=== PATIENT | female | born 1970 | race Caucasian/White ===

== ENCOUNTER 2023-04-15 11:51 | Observation (INO) ==
--- NOTE | 2023-04-15 12:12 | DR.AMS ---
HPI Time Seen Time Seen by Provider: 04/15/23 12:12 Complaint Cheif Complaint Doctors Comments: 52-year-old female brought in by her son for evaluation. Patient with a history of chronic back pain, awaiting appointment for back surgery. She is on chronic pain medications. Son states she found her talking out of her head this a.m.. Patient was confused, not making sense. Brought in for evaluation, she is currently doing better. Complaining of severe low back pain. No recent trauma, both legs weak. Has pain with urination, bearing down, but no urinary or stool incontinence. Has been chilled recently, but no known fever. No URI symptoms. COVID-19 Coronavirus risk:travel/contact w/high risk person: No Has patient experienced Coronavirus symptoms: No Reviewed Nurses Notes Reviewed: Yes Source History Provided: Patient and Family Member PMH PMH Past Medical History: Hypertension Past Medical History Comment: chronic back pain Past Surgical History: Yes Family History Family Medical History: Cancer and Hypertension Social History Alcohol Use: None Do you use any recreational Drugs:: No Travel Risk Coronavirus risk:travel/contact w/high risk person: No Has patient experienced Coronavirus symptoms: No ROS Review of Systems Constitutional: Weakness Eyes: No Symptoms Reported ENTM: No Symptoms Reported Respiratoy: No Symptoms Reported Cardiovascular: No Symptoms Reported Gastrointestinal/Abdominal: No Symptoms Reported Genitourinary: No Symptoms Reported Neurological: Tingling and Weakness Musculoskeletal: No Symptoms Reported Integumentary: No Symptoms Reported All Other Systems: Reviewed and Negative PE Vitals Vital Signs: Temp Pulse Resp BP Pulse Ox O2 Del Method 04/15/23 16:45 115 H 25 H 04/15/23 16:30 116 H 28 H 04/15/23 16:30 148/72 04/15/23 16:15 112 H 25 H 04/15/23 16:00 109 H 26 H 99 04/15/23 16:00 143/70 04/15/23 15:55 110 H 22 98 04/15/23 15:55 141/64 04/15/23 15:45 109 H 29 H 04/15/23 15:30 109 H 26 H 04/15/23 15:15 109 H 19 04/15/23 15:00 108 H 19 04/15/23 14:45 107 H 23 04/15/23 14:30 105 H 24 04/15/23 14:15 104 H 23 98 04/15/23 14:00 153/67 04/15/23 14:00 109 H 28 H 04/15/23 13:45 104 H 31 H 04/15/23 13:30 100 H 19 04/15/23 13:30 134/64 04/15/23 13:29 100 H 19 04/15/23 13:00 105 H 19 04/15/23 13:00 149/85 04/15/23 12:45 99 H 04/15/23 12:31 97 H 95 04/15/23 12:31 120/59 04/15/23 12:30 97 H 92 L 04/15/23 12:15 96 H 93 L 04/15/23 12:06 100 H 97 04/15/23 12:05 150/68 04/15/23 11:51 99.6 F 102 H 18 150/68 97 Room Air General General Appearance: Alert and In No Apparent Distress Head Head Exam: Normal Inspection, Atraumatic and Normocephalic Eyes Eye exam: PERRL and EOMI ENT ENT Exam: Normal Oropharynx and Mucous Membranes Moist Neck Neck Exam: Normal Inspection and Full ROM Respiratory Respiratory Exam: Normal Lung Sounds Bilat; negative Accessory Muscle Use or Respiratory Distress Cardiovascular Cardiovascular Exam: Regular Rate, Normal Rhythm and Normal Heart Sounds Abdominal Exam Abdominal Exam: Normal Bowel Sounds and Soft; negative Tenderness Extremities Extremities Exam: Normal Inspection; negative Tenderness or Edema Neurological Neurological Exam: Alert, Oriented X3, CN II-XII Intact and Other (+ bilateral lower ext weakness. Cant keep either off bed, + FROM ankles/feet/toes, + good pulses.) Skin Skin Exam: Warm and Dry COURSE Treatment Treatment: 52-year-old female brought in via son for altered mental status. He states she was talking out of her head this a.m. Patient on chronic medications for pain, anxiety. Patient due for back surgery in the future, trying to schedule appoint with specialist. No report of recent illness. Neurologically intact. Weakness of bilateral lower extremities try to get off the bed. Has full range of motion and strength of her ankles/toes. Patient given IV fluids. 1535 -imaging studies unremarkable for acute abnormalities. Patient had an acceptable chest x-ray, CT of the brain, CT lumbar spine. Does have chronic degenerative disc disease of the lumbar spine. CBC acceptable. CMP PE shows elevated kidney numbers, were normal last year. BUN now 61, creatinine 2.44 with an EGFR of 22, consistent with depletion. Also with a bump of her AST, 287 and ALT 163. Patient was given IV fluids, given additional IV fluids for dehydration. Pt 's responds appropiately to some questions, then starts talking gibberish. Will admit for further hydration, consider MRI of the brain to look out for subtle lesions. 1718 - Dr De Leon accepts the admission. [facility] Labs Reviewed Laboratory Results Reviewed?: Yes 04/15/23 12:45 04/15/23 12:45 Laboratory: WBC 12.8 X10^3/uL (3.6-10.0) H 04/15/23 12:45 RBC 4.09 X10^6/uL (3.5-5.4) 04/15/23 12:45 Hgb 13.1 g/dL (12.0-16.0) 04/15/23 12:45 Hct 38.7 % (36.0-47.0) 04/15/23 12:45 MCV 94.7 fL (80.0-100.0) 04/15/23 12:45 MCH 32.0 pg (27.0-34.0) 04/15/23 12:45 MCHC 33.8 g/dL (33.0-35.0) 04/15/23 12:45 RDW 12.5 % (11.6-16.5) 04/15/23 12:45 Plt Count 376 X10^3/uL (150.0-450.0) 04/15/23 12:45 MPV 7.2 fL (7.4-11.0) L 04/15/23 12:45 Neut % (Auto) 85.4 % (42.0-75.0) H 04/15/23 12:45 Lymph % (Auto) 8.2 % (21.0-51.0) L 04/15/23 12:45 Mckean % (Auto) 6.0 % (0.0-13.0) 04/15/23 12:45 Eos % (Auto) 0.0 % (0.9-2.9) L 04/15/23 12:45 Baso % (Auto) 0.4 % (0.2-1.0) 04/15/23 12:45 Neut # (Auto) 10.9 x10^3/uL (2.2-4.8) H 04/15/23 12:45 Lymph # (Auto) 1.0 X10^3/uL (1.3-2.9) L 04/15/23 12:45 Mckean # (Auto) 0.8 x10^3/uL (0.3-0.8) 04/15/23 12:45 Eos # (Auto) 0.0 x10^3/uL (0.0-0.2) 04/15/23 12:45 Baso # (Auto) 0.1 X10^3/uL (0.0-0.1) 04/15/23 12:45 Absolute Nucleated RBC 0.0 /100WBC 04/15/23 12:45 Sodium 136 mmol/L (136-145) 04/15/23 12:45 Corrected Sodium TNP 04/15/23 12:45 Potassium 4.1 mmol/L (3.5-5.1) 04/15/23 12:45 Chloride 100 mmol/L (98-107) 04/15/23 12:45 Carbon Dioxide 25.7 mmol/L (21-32) 04/15/23 12:45 BUN 61 mg/dL (7-18) H 04/15/23 12:45 Creatinine 2.44 mg/dL (0.55-1.02) H 04/15/23 12:45 Est GFR (MDRD) Af Amer 27 (>60) L 04/15/23 12:45 Est GFR (MDRD) Non-Af 22 (>60) L 04/15/23 12:45 Glucose 90 mg/dL (65-99) 04/15/23 12:45 Calcium 9.4 mg/dL (8.5-10.1) 04/15/23 12:45 Corrected Calcium TNP 04/15/23 12:45 Total Bilirubin 0.60 mg/dL (0.2-1.0) 04/15/23 12:45 AST 287 Units/L (15-37) H 04/15/23 12:45 ALT 163 Units/L (12-78) H 04/15/23 12:45 Alkaline Phosphatase 84 Units/L (46-116) 04/15/23 12:45 Total Protein 8.2 g/dL (6.4-8.2) 04/15/23 12:45 Albumin 3.8 g/dL (3.4-5.0) 04/15/23 12:45 Globulin 4.4 g/dL (2.5-4.5) 04/15/23 12:45 Albumin/Globulin Ratio 0.9 Ratio (1.1-2.1) L 04/15/23 12:45 Specimen Type Catherized urine 04/15/23 14:05 Urine Color Yellow (YELLOW) 04/15/23 14:05 Urine Appearance Clear (CLEAR) 04/15/23 14:05 Urine pH 5.0 (5.0 - 8.0) 04/15/23 14:05 Ur Specific Rugby 1.010 (1.000-1.030) 04/15/23 14:05 Urine Protein 2+ (NEGATIVE) 04/15/23 14:05 Urine Glucose (UA) Negative (NEGATIVE) 04/15/23 14:05 Urine Ketones Negative (NEGATIVE) 04/15/23 14:05 Urine Blood 5+ (NEGATIVE) 04/15/23 14:05 Urine Nitrite Negative (NEGATIVE) 04/15/23 14:05 Urine Bilirubin Negative (NEGATIVE) 04/15/23 14:05 Urine Urobilinogen Normal (NORMAL) 04/15/23 14:05 Ur Leukocyte Esterase Negative (NEGATIVE) 04/15/23 14:05 Urine RBC 3-5 /HPF (0-3) A 04/15/23 14:05 Urine WBC None seen /HPF (0-5) 04/15/23 14:05 Ur Squamous Epith Cells Negative /HPF (NEGATIVE) 04/15/23 14:05 Urine Bacteria Negative /HPF (NEGATIVE) 04/15/23 14:05 Granular Casts Few /LPF (NEGATIVE) 04/15/23 14:05 Ur Culture Indicated? No/not indicated 04/15/23 14:05 Urine Opiates Screen Positive (NEG=<300) A 04/15/23 14:05 Urine Methadone Screen Negative (NEG=<300) 04/15/23 14:05 Ur Barbiturates Screen Negative (NEG=<200) 04/15/23 14:05 Ur Phencyclidine Scrn Negative (NEG=<25) 04/15/23 14:05 Ur Amphetamines Screen Negative (NEG=<1000) 04/15/23 14:05 U Benzodiazepines Scrn Positive (NEG=<200) A 04/15/23 14:05 Urine Cocaine Screen Negative (NEG=<300) 04/15/23 14:05 U Marijuana (THC) Screen Negative (NEG=<50) 04/15/23 14:05 XRAY XRAY Interpreted by: Both X-ray Results: EXAM: LUMBAR SPINE W/O CON HISTORY: AMS, BILATERAL LEG WEAKNESS; COMPARISON: December 12, 2022 TECHNIQUE: Limited noncontrast CT of the abdomen and pelvis is performed in the axial plane and reconstructed with multi planer reformats. Evaluation of the spinal canal, assessment of the cord and evaluation/visualization of disc herniations is limited on a noncontrast CT FINDINGS: No retroperitoneal or paravertebral fluid collections are demonstrated. Circumferential athero sclerotic plaque is visible within the abdominal aorta. There is a punctate nonobstructing calculus of the upper pole of the right kidney. Right renal pelvis and right ureter are asymmetrically dilated compared to the contralateral side with no visible ureteral stones within the field of view. Please note that the entirety of the right ureter is not visualized with this exam. The bladder is distended at the time of the scan. There is no pathologic free fluid. Multiple pelvic phleboliths are demonstrated. The SI joints are maintained without ankylosis. There is a superior endplate compression deformity associated with a focal Schmorl's node defect with respect to the anterior superior endplate of the L3 vertebral body which results in mild localized height loss focally. This is chronic and unchanged from prior exams. Additional Schmorl's node defects are seen in the superior endplate of L2 and inferior endplate of T12 respectively. There is multilevel endplate spondylosis and facet hypertrophy becomes progressively more conspicuous in the caudal direction. There is marginal degenerative grade 1 retrolisthesis of L3 on 4 and L4 on 5 respectively. Otherwise the spinal column remains anatomically aligned. Diminished bone mineral density is observed overall. No acute fractures are demonstrated. Disc spaces are uniform in caliber. There is mild bilateral neural foraminal compromise at L3-4 and [id number] neural foraminal compromise bilaterally at L4-5 secondary to disc bulge and facet hypertrophy. Mild dextrocurvature of the spine is noted, as positioned. IMPRESSION: No acute lumbar spine fracture or posttraumatic subluxation. Chronic superior endplate compression deformity and prominent anterior superior endplate Schmorl's node defect at L3 results in mild localized height loss. Bulging discs and facet hypertrophy contribute to neural foraminal narrowing bilaterally at L3-4 and L4-5 There is nonspecific mild right-sided hydroureteronephrosis with incomplete visualization of the right ureter. No radiopaque stones are seen within the right ureter within the field of view. A nonobstructing calculus is demonstrated within the upper pole of the right kidney. Additionally, the bladder is distended at the time of the scan. THIS IS AN ELECTRONICALLY VERIFIED FINAL REPORT 04/15/2023 2:07 PM - Electronically signed by Enzo Thompson MD EXAM: BRAIN W/O CON HISTORY: AMS, BILATERAL LEG WEAKNESS; COMPARISON: No relevant prior studies were available for comparison at the time of interpretation.. TECHNIQUE: CT images were obtained. Multiplanar reconstructions were created on a separate workstation and used during interpretation. All CT scans at this facility is dose modulation, iterative reconstruction, and/or weight-based dosing as appropriate to reduce radiation to levels as low as reasonably achievable (ALARA). Postprocessing details, radiation dose, and contrast dose (if applicable) are recorded in the patient's medical record. FINDINGS: Acute findings: There is no intracranial hemorrhage. No mass effect. No intra- axial or extra-axial fluid collection. There is no mass. No tentorial, uncal, or tonsillar herniation. Brain volume and white matter: Brain volume and attenuation is normal for age. Ventricles: No hydrocephalus Midline structures: Pituitary gland and corpus callosum are normal. Posterior fossa and skull base: Cerebellum and posterior fossa are within normal limits. Basal cisterns are not effaced. Sinuses and mastoids: Paranasal sinuses and mastoid air cells are predominantly clear. Globes and Orbits: Globes are intact. Bony orbits are intact. Orbital contents are unremarkable. Skull and soft tissues: No depressed skull fracture. Calvarium appears intact. No scalp injury is identified. IMPRESSION: 1. No acute intracranial abnormality THIS IS AN ELECTRONICALLY VERIFIED FINAL REPORT 04/15/2023 1:54 PM - Electronically signed by Getachew Romero MD Opioid Opioid Risk Tool Age (Lemuel box if 16-45): No History of Preadolescent Sexual Abuse: No Total: 0 Total Score Risk Category: Low Risk Copyright: Nitish ANN predicting aberrant behaviors Discharge Plan Diagnosis Discharge Problem: Altered mental status, Volume depletion, Chronic back pain Discharge Plan Patient Disposition: 09 ADMITTED INPATIENT Condition: Stable Orders to Discharge Patient Discharge Orders: Transfer (Routine); Ordered 04/15/23 Ordered By: Richie Donovan
[2023-04-15] MEDS ORDERED: NS 1,000 ML IV 1,000 ML IV ONE (12:23)
[2023-04-15] MEDS ORDERED: NS 1,000 ML IV 1,000 ML ONE (12:30)
[2023-04-15 12:33] LABS: BILIRUBIN,URINE NEGATIVE (NEGATIVE); BLOOD/HEMOGLOBIN,URINE 5+ (NEGATIVE); GLUCOSE, URINE NEGATIVE (NEGATIVE); KETONES,URINE NEGATIVE (NEGATIVE); LEUKOCYTE ESTERASE ,URINE NEGATIVE (NEGATIVE); NITRITES,URINE NEGATIVE (NEGATIVE); PROTEIN,URINE 2+ (NEGATIVE); UROBILINOGEN,URINE NORMAL (NORMAL)
[2023-04-15 12:34] LABS: APPEARANCE,URINE CLEAR (CLEAR); COLOR,URINE YELLOW (YELLOW)
[2023-04-15 12:39] LABS: SQUAMOUS EPITHELIAL CELL,UR RARE /HPF (NEGATIVE)
[2023-04-15 12:40] LABS: BACTERIA,URINE NEGATIVE /HPF (NEGATIVE)
[2023-04-15 12:41] LABS: GRANULAR CASTS,URINE RARE /LPF (NEGATIVE)
[2023-04-15 13:01] LABS: BASOPHILS # (AUTO) 0.1 X10^3/uL (0.0-0.1); HEMOGLOBIN 13.1 g/dL (12.0-16.0); MEAN PLATELET VOLUME 7.2 fL (7.4-11.0); MONOCYTES # (AUTO) 0.8 x10^3/uL (0.3-0.8); RED CELL DISTRIBUTION WIDTH 12.5 % (11.6-16.5)
[2023-04-15 13:04] LABS: BASOPHILS % (AUTO) 0.4 % (0.2-1.0); HEMATOCRIT 38.7 % (36.0-47.0); LYMPHOCYTES % (AUTO) 8.2 % (21.0-51.0); MEAN CORPUSCULAR HGB CONC 33.8 g/dL (33.0-35.0); MEAN CORPUSCULAR VOLUME 94.7 fL (80.0-100.0); NEUTROPHILS # (AUTO) 10.9 x10^3/uL (2.2-4.8); NEUTROPHILS % (AUTO) 85.4 % (42.0-75.0); PLATELET COUNT 376 X10^3/uL (150.0-450.0); RED BLOOD COUNT 4.09 X10^6/uL (3.5-5.4); WHITE BLOOD COUNT 12.8 X10^3/uL (3.6-10.0)
[2023-04-15 13:10] LABS: ALANINE AMINOTRANSFERASE 163 Units/L (12-78); ALBUMIN 3.8 g/dL (3.4-5.0); ALKALINE PHOSPHATASE 84 Units/L (46-116); ASPARTATE AMINO TRANSFERASE 287 Units/L (15-37); BLOOD UREA NITROGEN 61 mg/dL (7-18); CALCIUM 9.4 mg/dL (8.5-10.1); CARBON DIOXIDE 25.7 mmol/L (21-32); CHLORIDE 100 mmol/L (98-107); CREATININE 2.44 mg/dL (0.55-1.02); GLUCOSE 90 mg/dL (65-99); POTASSIUM 4.1 mmol/L (3.5-5.1); SODIUM 136 mmol/L (136-145); TOTAL PROTEIN 8.2 g/dL (6.4-8.2); eGFR NON BLACK RACES 22 (>60)
--- NOTE | 2023-04-15 13:52 | RAD ---
EXAM:CHEST, 1 VIEWHISTORY:AMS, BILATERAL LEG WEAKNESS;COMPARISON:No relevant prior studies were available for comparison at the time of interpretation.TECHNIQUE:CHEST, 1 VIEWFINDINGS:Chest:Lines and tubes: Cardiac leads overlie the chest.Mediastinum: Cardiomegaly.Pulmonary vessels: Low lung volumes contributes to increased conspicuity of pulmonary vascular markings.Lung robles: No suspicious airspace opacity.Pleura: No effusion. No pneumothorax.Bones and soft tissues: No acute osseous or soft tissue abnormality.IMPRESSION:1. No acute cardiopulmonary abnormalityTHIS IS AN ELECTRONICALLY VERIFIED FINAL REPORT04/15/2023 1:48 PM - Electronically signed by Getachew Romero MD
--- NOTE | 2023-04-15 13:57 | CT ---
EXAM:BRAIN W/O CONHISTORY:AMS, BILATERAL LEG WEAKNESS;COMPARISON:No relevant prior studies were available for comparison at the time of interpretation..TECHNIQUE:CT images were obtained. Multiplanar reconstructions were created on a separate workstation and used during interpretation. All CT scans at this facility is dose modulation, iterative reconstruction, and/or weight-based dosing as appropriate to reduce radiation to levels as low as reasonably achievable (ALARA). Postprocessing details, radiation dose, and contrast dose (if applicable) are recorded in the patient's medical record.FINDINGS:Acute findings: There is no intracranial hemorrhage. No mass effect. No intra-axial or extra-axial fluid collection. There is no mass. No tentorial, uncal, or tonsillar herniation.Brain volume and white matter: Brain volume and attenuation is normal for age.Ventricles: No hydrocephalusMidline structures: Pituitary gland and corpus callosum are normal.Posterior fossa and skull base: Cerebellum and posterior fossa are within normal limits. Basal cisterns are not effaced.Sinuses and mastoids: Paranasal sinuses and mastoid air cells are predominantly clear.Globes and Orbits: Globes are intact. Bony orbits are intact. Orbital contents are unremarkable.Skull and soft tissues: No depressed skull fracture. Calvarium appears intact. No scalp injury is identified.IMPRESSION:1. No acute intracranial abnormalityTHIS IS AN ELECTRONICALLY VERIFIED FINAL REPORT04/15/2023 1:54 PM - Electronically signed by Getachew Romero MD
--- NOTE | 2023-04-15 14:11 | CT ---
EXAM:LUMBAR SPINE W/O CONHISTORY:AMS, BILATERAL LEG WEAKNESS;COMPARISON:December 12, 2022TECHNIQUE:Limited noncontrast CT of the abdomen and pelvis is performed in the axial plane and reconstructed with multi planer reformats. Evaluation of the spinal canal, assessment of the cord and evaluation/visualization of disc herniations is limited on a noncontrast CTFINDINGS:No retroperitoneal or paravertebral fluid collections are demonstrated. Circumferential athero sclerotic plaque is visible within the abdominal aorta. There is a punctate nonobstructing calculus of the upper pole of the right kidney. Right renal pelvis and right ureter are asymmetrically dilated compared to the contralateral side with no visible ureteral stones within the field of view. Please note that the entirety of the right ureter is not visualized with this exam. The bladder is distended at the time of the scan. There is no pathologic free fluid. Multiple pelvic phleboliths are demonstrated. The SI joints are maintained without ankylosis. There is a superior endplate compression deformity associated with a focal Schmorl's node defect with respect to the anterior superior endplate of the L3 vertebral body which results in mild localized height loss focally. This is chronic and unchanged from prior exams. Additional Schmorl's node defects are seen in the superior endplate of L2 and inferior endplate of T12 respectively. There is multilevel endplate spondylosis and facet hypertrophy becomes progressively more conspicuous in the caudal direction. There is marginal degenerative grade 1 retrolisthesis of L3 on 4 and L4 on 5 respectively. Otherwise the spinal column remains anatomically aligned. Diminished bone mineral density is observed overall. No acute fractures are demonstrated. Disc spaces are uniform in caliber. There is mild bilateral neural foraminal compromise at L3-4 and [id number] neural foraminal compromise bilaterally at L4-5 secondary to disc bulge and facet hypertrophy. Mild dextrocurvature of the spine is noted, as positioned.IMPRESSION:No acute lumbar spine fracture or posttraumatic subluxation.Chronic superior endplate compression deformity and prominent anterior superior endplate Schmorl's node defect at L3 results in mild localized height loss.Bulging discs and facet hypertrophy contribute to neural foraminal narrowing bilaterally at L3-4 and L4-5There is nonspecific mild right-sided hydroureteronephrosis with incomplete visualization of the right ureter. No radiopaque stones are seen within the right ureter within the field of view. A nonobstructing calculus is demonstrated within the upper pole of the right kidney. Additionally, the bladder is distended at the time of the scan.THIS IS AN ELECTRONICALLY VERIFIED FINAL REPORT04/15/2023 2:07 PM - Electronically signed by Enzo Thompson MD
[2023-04-15 14:12] LABS: BILIRUBIN,URINE NEGATIVE (NEGATIVE); BLOOD/HEMOGLOBIN,URINE 5+ (NEGATIVE); GLUCOSE, URINE NEGATIVE (NEGATIVE); KETONES,URINE NEGATIVE (NEGATIVE); LEUKOCYTE ESTERASE ,URINE NEGATIVE (NEGATIVE); NITRITES,URINE NEGATIVE (NEGATIVE); PROTEIN,URINE 2+ (NEGATIVE); UROBILINOGEN,URINE NORMAL (NORMAL)
[2023-04-15 14:21] LABS: APPEARANCE,URINE CLEAR (CLEAR); BACTERIA,URINE NEGATIVE /HPF (NEGATIVE); COLOR,URINE YELLOW (YELLOW); SQUAMOUS EPITHELIAL CELL,UR NEGATIVE /HPF (NEGATIVE)
[2023-04-15 14:22] LABS: GRANULAR CASTS,URINE FEW /LPF (NEGATIVE)
[2023-04-15] MEDS ORDERED: D5 NS 1,000 ML IV 1,000 ML IV ONE ×2 (15:42→16:05)
[2023-04-15] MEDS: D5W 1,000 ML IV 0 ML IV ONE ×2 (16:01→16:22)
[2023-04-15] MEDS ORDERED: ZOFRAN INJ 4 MG VIAL IVP PRN (19:27)
[2023-04-15] MEDS ORDERED: CONSULT PHARMACY - POTASSIUM & MAGNESIUM XX SCH (19:27)
[2023-04-15] MEDS ORDERED: D5 1/2 NS 1,000 ML 1,000 ML IV ONE (19:32)
[2023-04-15] MEDS: D5 1/2 NS 1,000 ML 1,000 ML IV SCH (21:05)
[2023-04-15 22:38] VITALS: BMI 32.1
[2023-04-16] MEDS: D5 1/2 NS 1,000 ML 1,000 ML IV SCH (03:48)
[2023-04-16 06:43] LABS: BASOPHILS # (AUTO) 0.1 X10^3/uL (0.0-0.1); BASOPHILS % (AUTO) 0.6 % (0.2-1.0); HEMATOCRIT 35.7 % (36.0-47.0); HEMOGLOBIN 12.3 g/dL (12.0-16.0); LYMPHOCYTES # (AUTO) 0.9 X10^3/uL (1.3-2.9); MEAN CORPUSCULAR HEMOGLOBIN 32.4 pg (27.0-34.0); MEAN CORPUSCULAR HGB CONC 34.6 g/dL (33.0-35.0); MEAN CORPUSCULAR VOLUME 93.7 fL (80.0-100.0); MEAN PLATELET VOLUME 7.2 fL (7.4-11.0); MONOCYTES # (AUTO) 1.1 x10^3/uL (0.3-0.8); MONOCYTES % (AUTO) 9.5 % (0.0-13.0); NEUTROPHILS # (AUTO) 9.4 x10^3/uL (2.2-4.8); NEUTROPHILS % (AUTO) 81.9 % (42.0-75.0); PLATELET COUNT 378 X10^3/uL (150.0-450.0); RED BLOOD COUNT 3.81 X10^6/uL (3.5-5.4); RED CELL DISTRIBUTION WIDTH 12.2 % (11.6-16.5); WHITE BLOOD COUNT 11.4 X10^3/uL (3.6-10.0)
[2023-04-16 07:05] LABS: ALANINE AMINOTRANSFERASE 172 Units/L (12-78); ALBUMIN 3.3 g/dL (3.4-5.0); ALKALINE PHOSPHATASE 77 Units/L (46-116); ASPARTATE AMINO TRANSFERASE 332 Units/L (15-37); BLOOD UREA NITROGEN 18 mg/dL (7-18); CALCIUM 9.1 mg/dL (8.5-10.1); CARBON DIOXIDE 27.4 mmol/L (21-32); CHLORIDE 103 mmol/L (98-107); COR CA(FOR HYPOALB) 9.7 mg/dL (8.5-10.1); COR NA(FOR HYPERGLY) 140 mmol/L (136-145); GLUCOSE 143 mg/dL (65-99); SODIUM 139 mmol/L (136-145); TOTAL PROTEIN 7.8 g/dL (6.4-8.2); eGFR NON BLACK RACES > 60 (>60)
[2023-04-16] MEDS ORDERED: CONSULT PHARMACY - POTASSIUM & MAGNESIUM XX SCH (08:00)
[2023-04-16] MEDS: LOVENOX INJ 40 MG SYR SC SCH (10:02)
[2023-04-16] MEDS: D5 1/2 NS + KCL 20 MEQ/L 1,000 ML IV SCH ×3 (10:02→18:12)
[2023-04-16] MEDS ORDERED: RESTORIL CAP 15 MG PO PRN (11:43)
[2023-04-16] MEDS: NORVASC TAB 5 MG PO SCH (12:16)
[2023-04-16] MEDS: TORADOL 30 MG VIAL IVP PRN ×2 (12:16→18:20)
--- NOTE | 2023-04-16 12:58 | DR.H&P ---
H&P - History & Physical for Day of: H&P Date: 04/15/23 - Chief Complaint Chief Complaint: AMS, LOW BACK PAIN, WEAKNESS - History of Present Illness History of Present Illness: IS A 52 YEAR OLD PATIENT OF LEFTY BYRD. HER HX INCLUDES HTN, HYPERLIPDEMIA, ANXIETY, AND CHRONIC LOW BACK PAIN. PATIENT WAS BROUGHT INTO THE ER BY HER SON FOR EVALUATION. HE REPORTS THAT HE FOUND HER CONFUSED THIS MORNING. HE REPORTS THAT SHE WAS NOT MAKING ANY SENSE. UPON ARRIVAL TO THE HOSPITAL, PATIENT WAS ALERT AND WAS ABLE TO ANSWER QUESTIONS AND FOLLOW COMMANDS APPROPRIATELY. SHE COMPLAINED OF SEVERE LOW BACK PAIN AND LOWER EXTREMITY WEAKNESS. SHE REPORTS THAT SHE IS AWAITING AN APPOINTMENT FOR BACK SURGERY. SHE DENIES RECENT TRAUMA. SHE ALSO ADMITS TO PAIN WITH URINATION AND BEARING DOWN BUT NO URINARY OR STOOL INCONTINENCE OR FEVER. ON ARRIVAL TO THE HOSPITAL, VITALS WERE 99.6-100-18-97%-150/68. LABS WERE OBTAINED. WBC 12.8, RBC 4.09, HGB 13.1, HCT 38.7, PLT COUNT 376, SODIUM 136, POTASSIUM 4.1, CARBON DIOXIDE 25.7, BUN 61, CREATININE 2.44, GLUCOSE 90, CALCIUM 9.4, MAGNESIUM 2.8, TOTAL BILI 0.60, AST 287, ALT 163, ALK PHOS 84, TOTAL PROTEIN 8.2, ALBUMIN 3.8. A URINALYSIS WAS OBTAINED AND REVEALED: WBC NONE SEEN, RBC 3-5, BACTERIA NEGATIVE. UDS WAS POSITIVE, FOR OPIATES AND BENZODIAZEPINES. A BRAIN CT WITHOUT CONTRAST WAS OBTAINED AND REVEALED: NO ACUTE INTRACRANIAL ABNORMALITY. A LUMBAR SPINE CT WAS OBTAINED AND REVEALED: No acute lumbar spine fracture or posttraumatic subluxation. Chronic superior endplate compression deformity and prominent anterior superior endplate Schmorl's node defect at L3 results in mild localized height loss. Bulging discs and facet hypertrophy contribute to neural foraminal narrowing bilaterally at L3-4 and L4-5. There is nonspecific mild right-sided hydroureteronephrosis with incomplete visualization of the right ureter. No radiopaque stones are seen within the right ureter within the field of view. A non-obstructing calculus is demonstrated within the upper pole of the right kidney. Additionally, the bladder is distended at the time of the scan. A CHEST XRAY WAS OBTAINED AND REVEALED: No acute cardiopulmonary abnormality. IN THE ER, SHE WAS GIVEN A NORMAL SALINE BOLUS AND A BOLUS D5NS. SHE WAS ADMITTED TO THE HOSPITAL OBSERVATION STATUS FOR FURTHER EVALUATION AND TREATMENT OF VOLUME DEPLETION, ACUTE KIDNEY INJURY, ALTERED MENTAL STATUS, CHRONIC BACK PAIN. SHE WAS STARTED ON D5 NS WITH 20MEQ KCL AT 125 ML/HR, LOVENOX 40MG SC DAILY, TORADOL 30MG IV Q6H PRN, OTBS ACHS, AND ZOFRAN 4MG IV Q6H PRN. WE WILL RESUME HER HOME MEDICATIONS OF NORVASC, NORCO, ZOCOR, RESTORIL, AND ZANAFLEX. OTHERWISE, WE WILL FOLLOW-UP WITH AM LABS AND CONTINUE TO MONITOR. TIME SPENT ON CLINICAL ASSESSMENT, REVIEWING LABS AND IMAGING, DECISION MAKING, AND DOCUMENTATION GREATER THAN 75 MINUTES. - Past Medical History Past Medical History: Anxiety, Dyslipidemia, Hypertension Additional Medical History: CHRONIC LOW BACK PAIN - Past Surgical History Surgical History: Cholecystectomy - Family History Family Medical History: Cancer, Hypertension - Social History Does patient currently use any type of tobacco product: Yes (vape) Type of Tobacco Use: vape How many years tobacco product used: 39 Does any household member use tobacco: No Alcohol Use: Occasionally Drug Use: Prescription Drugs - Review of Systems Constitutional: Weakness Eyes: No Symptoms Reported ENT: No Symptoms Reported Respiratory: No Symptoms Reported Cardiovascular: No Symptoms Reported Gastrointestinal: No Symptoms Reported Genitourinary: No Symptoms Reported Musculoskeletal: No Symptoms Reported Skin: No Symptoms Reported Neurological: Weakness - Physical Exam Vital Signs: Vital Signs Temperature 97.7 F Temperature 98.9 F Pulse Rate [Left] 90 Pulse Rate [Left] 93 Respiratory Rate 18 Respiratory Rate 20 Respiratory Rate 20 Blood Pressure [Left Arm] 139/63 Blood Pressure [Left Arm] 137/73 O2 Sat by Pulse Oximetry 99 O2 Sat by Pulse Oximetry 96 Oriented: Normal Eyes: Normal Ear: Normal Nose: Normal Throat: Normal Respiratory: Clear Throughout Cardiovascular: Normal : Normal Auscultation: Bowel Sounds: Normal Palpation: Normal Tenderness: Normal, Diffuse Skin: Decreased Turgur Musculoskeletal: Normal Psychiatric: Normal Mood Description: Calm Affect: Normal Speech Pattern: Clear - Assessment/Plan (1) Acute kidney injury Status: Acute Plan: ADMIT, D5 NS WITH 20MEQ KCL AT 125 ML/HR, LOVENOX 40MG SC DAILY, TORADOL 30MG IV Q6H PRN, OTBS ACHS, AND ZOFRAN 4MG IV Q6H PRN. WE WILL RESUME HER HOME MEDICATIONS OF NORVASC, NORCO, ZOCOR, RESTORIL, AND ZANAFLEX. (2) Volume depletion Status: Acute (3) Altered mental status Qualifiers: Altered mental status type: unspecified Qualified Code(s): R41.82 - Altered mental status, unspecified Status: Acute (4) Chronic back pain Qualifiers: Back pain location: low back pain Back pain laterality: unspecified Sciatica presence: unspecified whether sciatica present Qualified Code(s): M54.50 - Low back pain, unspecified; G89.29 - Other chronic pain Status: Acute (5) Hypertension Status: Acute - Allergies Allergies/Adverse Reactions: Allergies Allergy/AdvReac Type Severity Reaction Status Date / Time No Known Drug Allergies Allergy Unknown Verified 04/15/23 12:35 - Medications Home Medications: Home Medications Medication Instructions Recorded Confirmed amlodipine 5 mg tablet 5 mg PO QDAY 04/15/23 04/15/23 diazepam 10 mg tablet 10 mg PO BID PRN 04/15/23 04/15/23 ergocalciferol (vitamin D2) 1,250 1,250 mcg PO WEEKLY 04/15/23 04/15/23 mcg (50,000 unit) capsule hydrocodone 10 mg-acetaminophen 1 tab PO QID PRN 04/15/23 04/15/23 325 mg tablet lisinopril 20 1 tab PO QDAY 04/15/23 04/15/23 mg-hydrochlorothiazide 25 mg tablet simvastatin 10 mg tablet 10 mg PO QPM 04/15/23 04/15/23 temazepam 30 mg capsule 30 mg PO QPM PRN 04/15/23 04/15/23 tizanidine 4 mg tablet 4 mg PO TID PRN 04/15/23 04/15/23
[2023-04-16] MEDS: NORCO 10/325 TAB PO PRN ×2 (15:51→21:25)
[2023-04-16] MEDS ORDERED: ZOCOR TAB 10 MG PO SCH (21:00)
[2023-04-16] MEDS: ZANAFLEX PO PRN (21:24)
[2023-04-17] MEDS: D5 1/2 NS + KCL 20 MEQ/L 1,000 ML IV SCH ×2 (00:09→10:00)
[2023-04-17] MEDS: TORADOL 30 MG VIAL IVP PRN ×3 (00:09→12:04)
[2023-04-17] MEDS: NORCO 10/325 TAB PO PRN ×2 (03:54→08:02)
[2023-04-17] MEDS: ZANAFLEX PO PRN (05:36)
[2023-04-17 05:37] VITALS: RESP 20
[2023-04-17 06:24] LABS: ALANINE AMINOTRANSFERASE 152 Units/L (12-78); ALBUMIN 2.7 g/dL (3.4-5.0); ALKALINE PHOSPHATASE 64 Units/L (46-116); ASPARTATE AMINO TRANSFERASE 212 Units/L (15-37); BASOPHILS # (AUTO) 0.1 X10^3/uL (0.0-0.1); BASOPHILS % (AUTO) 0.6 % (0.2-1.0); BLOOD UREA NITROGEN 19 mg/dL (7-18); CALCIUM 8.8 mg/dL (8.5-10.1); CARBON DIOXIDE 25.5 mmol/L (21-32); CHLORIDE 104 mmol/L (98-107); COR CA(FOR HYPOALB) 9.8 mg/dL (8.5-10.1); EOSINOPHILS % (AUTO) 0.3 % (0.9-2.9); GLUCOSE 98 mg/dL (65-99); HEMATOCRIT 32.8 % (36.0-47.0); HEMOGLOBIN 11.4 g/dL (12.0-16.0); LYMPHOCYTES % (AUTO) 20.5 % (21.0-51.0); MEAN CORPUSCULAR HEMOGLOBIN 32.9 pg (27.0-34.0); MEAN CORPUSCULAR HGB CONC 34.9 g/dL (33.0-35.0); MEAN CORPUSCULAR VOLUME 94.2 fL (80.0-100.0); MEAN PLATELET VOLUME 7.8 fL (7.4-11.0); MONOCYTES % (AUTO) 10.1 % (0.0-13.0); NEUTROPHILS # (AUTO) 6.5 x10^3/uL (2.2-4.8); NEUTROPHILS % (AUTO) 68.5 % (42.0-75.0); PLATELET COUNT 332 X10^3/uL (150.0-450.0); POTASSIUM 3.8 mmol/L (3.5-5.1); RED BLOOD COUNT 3.48 X10^6/uL (3.5-5.4); RED CELL DISTRIBUTION WIDTH 12.4 % (11.6-16.5); SODIUM 138 mmol/L (136-145); TOTAL PROTEIN 6.8 g/dL (6.4-8.2); WHITE BLOOD COUNT 9.5 X10^3/uL (3.6-10.0); eGFR NON BLACK RACES 55 (>60)
[2023-04-17 08:33] VITALS: TEMP 98.3
[2023-04-17] MEDS: NORVASC TAB 5 MG PO SCH (10:00)
[2023-04-17] MEDS: LOVENOX INJ 40 MG SYR SC SCH (10:00)
[2023-04-17 13:43] VITALS: BP 136/82; PULSE 70; O2SAT 97
== END 2023-04-17 13:30 | disposition home or self-care (01) ==
LOC: ER 11:51 → MED/SURG 11:51
PROVIDERS: ADMIT Internal Medicine; ATTEND Internal Medicine
DX: N17.8 Other acute kidney failure; I10 Essential (primary) hypertension; Z79.899 Other long term (current) drug therapy; R53.1 Weakness; M54.59 Other low back pain; R60.0 Localized edema; E78.5 Hyperlipidemia, unspecified; F41.8 Other specified anxiety disorders; R41.82 Altered mental status, unspecified; E86.0 Dehydration; R73.09 Other abnormal glucose